=== PATIENT | female | born 1975 ===

== ENCOUNTER 2016-10-18 16:49 | Emergency (ER) | payer BC ==
[2016-10-18 16:55] VITALS: BP 140/89
--- NOTE | 2016-10-18 17:32 | UC ---
Lower Extremity/Ankle HPI - HPI Summary HPI Summary: Injured Left ankle on stairs 6 days ago---swelling has decrease---has been painful right along but when at work tonight she got stabbing pain in lateral ankle - History of Current Complaint Chief Complaint: UCLowerExtremity Stated Complaint: ankle injury Time Seen by Provider: 10/18/16 17:29 Hx Obtained From: Patient ?: No Onset/Duration: Sudden Onset, Lasting Days - 6, Still Present Severity Initially: Moderate Severity Currently: Moderate Pain Intensity: 8 Pain Scale Used: 0-10 Numeric Aggravating Factor(s): Standing, Ambulation Alleviating Factor(s): Rest, Elevation Able to Bear Weight: Yes - Allergies/Home Medications Allergies/Adverse Reactions: Allergies Allergy/AdvReac Type Severity Reaction Status Date / Time Codeine Allergy Severe Swelling Verified 10/18/16 16:55 Home Medications: Home Medications Albuterol HFA INHALER* [Ventolin HFA Inhaler*] 1 puff INH 10/18/16 [History] Amlodipine Besylate [Norvasc 10 mg tab] 10 mg PO DAILY 10/18/16 [History Confirmed 10/18/16] Fluticasone NASAL * [Flonase *] 2 spray BOTH NARES DAILY 10/18/16 [History Confirmed 10/18/16] PMH/Surg Hx/FS Hx/Imm Hx Previously Healthy: Yes Cardiovascular History: Hypertension Respiratory History: Asthma - Surgical History Surgical History: None - Family History Known Family History: Positive: None Family History: No reported cardio vascular issues in family lineage - Social History Occupation: Employed Full-time Lives: With Family Alcohol Use: None Substance Use Type: None Smoking Status (MU): Never Smoked Tobacco Review of Systems Constitutional: Negative Skin: Negative Eyes: Negative ENT: Negative Respiratory: Negative Cardiovascular: Negative Gastrointestinal: Negative Genitourinary: Negative Motor: Negative Neurovascular: Negative Musculoskeletal: Arthralgia - lateral left ankle pain Neurological: Negative Psychological: Negative All Other Systems Reviewed And Are Negative: Yes Physical Exam Triage Information Reviewed: Yes Appearance: Well-Appearing, No Pain Distress, Well-Nourished Vital Signs: Initial Vital Signs Temp 97.5 F 10/18/16 16:54 Pulse 95 10/18/16 16:54 Resp 16 10/18/16 16:54 BP 140/89 10/18/16 16:54 Pulse Ox 100 10/18/16 16:54 Vital Signs Reviewed: Yes Eye Exam: Normal Eyes: Positive: Conjunctiva Clear ENT Exam: Normal ENT: Positive: Normal ENT inspection, Hearing grossly normal. Negative: Nasal congestion, Nasal drainage, Trismus, Muffled/hoarse voice Dental Exam: Normal Neck exam: Normal Neck: Positive: Supple, Nontender Respiratory Exam: Normal Respiratory: Positive: Chest non-tender, No respiratory distress, No accessory muscle use Cardiovascular Exam: Normal Cardiovascular: Positive: RRR, Pulses Normal, Brisk Capillary Refill Musculoskeletal Exam: Normal Musculoskeletal: Positive: Strength Intact, ROM Intact, Edema @ - lateral left ankle Neurological Exam: Normal Neurological: Positive: Alert, Muscle Tone Normal Psychological Exam: Normal Skin Exam: Normal Diagnostics - Radiology No standard instances Xray Interpretation: No Acute Changes Radiology Interpretation Completed By: Radiologist Re-Evaluation - Re-Evaluation Second Eval Change: Improved - Gel splint applied---increase comfort n/m/c intact Lower Extremity Course/Dx - Course Course Of Treatment: Rice, Gel splint, pain med, follow with ortho prn - Differential Dx/Diagnosis Differential Diagnosis/HQI/PQRI: Burn, Cellulitis, Contusion, Fracture (Closed) , Sprain, Strain Provider Diagnoses: Left ankle sprain, Hypertension in poor control Discharge - Discharge Plan Condition: Stable Disposition: HOME Prescriptions: HYDROcodone/ACETAMIN 5-325 MG* [[place] 5-325 TAB*] 1 tab PO Q6H PRN #10 tab MDD 4 PRN Reason: Pain Patient Education Materials: Ibuprofen (By mouth), Ankle Sprain (ED), Ankle Stirrup Splint (ED), DASH Eating Plan (ED), Hypertension (ED), RICE Therapy (ED) Referrals: Patt Fabian NP [Primary Care Provider] - Neisha Leahy MD [Medical Doctor] - 4 Days
--- NOTE | 2016-10-18 18:25 | RAD ---
INDICATION: Ankle pain and swelling one week after twisting injury. COMPARISON: None. TECHNIQUE: 3 views of the left ankle were obtained. FINDINGS: There is mild swelling overlying the lateral ankle. The well corticated bones exhibit normal alignment. Joint spaces appear maintained. No fracture is seen. IMPRESSION: MILD LATERAL ANKLE SWELLING WITH NO RADIOGRAPHICALLY APPARENT UNDERLYING FRACTURE OR DISLOCATION. If the patient's symptoms persist, follow-up imaging is recommended.
[2016-10-18] MEDS ORDERED: HYDROcodone/ACETAMIN 5-325 MG* 1 TAB PO ONE (18:35)
== END 2016-10-18 18:49 | disposition home or self-care (01) ==
LOC: UCEAST 16:49
DX: S93.402A Sprain of unspecified ligament of left ankle, initial encounter (principal); X58.XXXA Exposure to other specified factors, initial encounter; Y93.9 Activity, unspecified; Y92.9 Unspecified place or not applicable; I10 Essential (primary) hypertension; J45.909 Unspecified asthma, uncomplicated; Z88.5 Allergy status to narcotic agent
CPT/HCPCS: 99213; G0463